=== PATIENT | male | born 1930 | race Asian ===

== ENCOUNTER 2021-05-20 16:20 | Inpatient (IN) | payer MEDICARE ==
[~2021-05-20] VITALS: Ht 162.6 cm; Wt 47.4 kg
[2021-05-20 17:22] LABS: HEMATOCRIT. 42.1 % (42.0-52.0); HEMOGLOBIN. 14.2 g/dL (14.0-18.0); MEAN CORPUSCULAR HEMOGLOBIN 31.1 pg (28.0-32.0); MEAN CORPUSCULAR VOLUME 92.5 fL (80.0-94.0); MEAN PLATELET VOLUME 7.1 fl (7.4-10.4); PLATELET 429 x1000/uL (130-400); RED BLOOD CELL COUNT 4.55 mill/uL (4.7-6.1); RED CELL DISTRIBUTION WIDTH 14.3 % (11.6-14.6)
[2021-05-20 17:26] LABS: CHLORIDE 108 mEq/L (98-107)
[2021-05-20 17:30] LABS: ETHANOL BLOOD < 10 mg/dL
[2021-05-20] MEDS ORDERED: DILTIAZEM HCL 5MG/ML 5ML VIAL IV ONE (17:30)
[2021-05-20] MEDS ORDERED: ASPIRIN 325MG EC TABLET PO ONE (17:30)
[2021-05-20 18:48] LABS: PLATELET ESTIMATE INCREASED
[2021-05-20] MEDS ORDERED: DILTIAZEM HCL 90MG TABLET PO ONE (19:00)
[2021-05-20] MEDS ORDERED: ENOXAPARIN 60MG/0.6ML SYR SUBCUT ONE (19:00)
[2021-05-21] VITALS (12 sets, daily range): BP systolic 105–136; BP diastolic 49–97
[2021-05-21] MEDS ORDERED: DIPHENHYDRAMINE 50MG/ML VIAL IV PRN (00:30)
[2021-05-21] MEDS ORDERED: GUAIFENESIN 200MG/10ML SUGAR FREE UDC PO PRN (00:30)
[2021-05-21] MEDS ORDERED: ACETAMINOPHEN 325MG TABLET PO PRN ×2 (00:30)
[2021-05-21] MEDS ORDERED: ZOLPIDEM TARTRATE 5MG TABLET PO PRN (00:30)
[2021-05-21] MEDS ORDERED: ONDANSETRON HCL 4MG/2ML INJ IV PRN (00:30)
[2021-05-21] MEDS ORDERED: MAGNESIUM/ALUMINUM HYDROXIDE/SIMETHICONE 30ML UDC PO PRN (00:30)
[2021-05-21 01:33] LABS: T4 FREE 1.38 ng/dL (0.76-1.46)
[2021-05-21] MEDS: OMEPRAZOLE 20MG CAPSULE EXTENDED RELEASE PO SCH ×2 (05:52→21:44)
[2021-05-21] MEDS: DILTIAZEM HCL 30MG TABLET PO SCH ×2 (05:52→11:27)
[2021-05-21] MEDS: SODIUM CHLORIDE 0.9% INJ 3ML FLUSH IVF SCH ×3 (05:52→21:45)
[2021-05-21] MEDS ORDERED: ENOXAPARIN 60MG/0.6ML SYR SUBCUT SCH (09:00)
[2021-05-21] MEDS ORDERED: ASPIRIN 81MG EC TABLET PO SCH (09:00)
[2021-05-21] MEDS: METOPROLOL TARTRATE 25MG TABLET PO SCH (21:45)
[2021-05-21] MEDS: ATORVASTATIN CALCIUM 20MG TABLET PO SCH (21:45)
[2021-05-22] VITALS (12 sets, daily range): BP systolic 108–152; BP diastolic 71–97
[2021-05-22] MEDS: OMEPRAZOLE 20MG CAPSULE EXTENDED RELEASE PO SCH (06:55)
[2021-05-22] MEDS: SODIUM CHLORIDE 0.9% INJ 3ML FLUSH IVF SCH ×3 (06:55→20:52)
[2021-05-22] MEDS: METOPROLOL TARTRATE 25MG TABLET PO SCH ×2 (08:37→20:50)
[2021-05-22] MEDS ORDERED: DIGOXIN 500MCG/2ML AMP IV NR (08:45)
[2021-05-22] MEDS ORDERED: ENOXAPARIN 60MG/0.6ML SYR SUBCUT SCH ×2 (09:00→21:00)
[2021-05-22 10:41] LABS: HEMATOCRIT. 38.7 % (42.0-52.0); MEAN CORPUSCULAR HEMOGLOBIN 31.1 pg (28.0-32.0); MEAN CORPUSCULAR VOLUME 92.8 fL (80.0-94.0); MEAN PLATELET VOLUME 7.1 fl (7.4-10.4); PLATELET 399 x1000/uL (130-400); RED BLOOD CELL COUNT 4.17 mill/uL (4.7-6.1)
[2021-05-22 10:48] LABS: CHLORIDE 103 mEq/L (98-107)
[2021-05-22] MEDS: DIGOXIN 500MCG/2ML AMP IV SCH ×2 (15:42→20:50)
[2021-05-22] MEDS: FAMOTIDINE 20MG TABLET PO SCH (20:50)
[2021-05-22] MEDS: ATORVASTATIN CALCIUM 20MG TABLET PO SCH (20:50)
[2021-05-22] MEDS: DILTIAZEM HCL 30MG TABLET PO SCH (22:33)
[2021-05-22 23:06] LABS: PLATELET ESTIMATE NORMAL
[2021-05-23] VITALS (12 sets, daily range): BP systolic 116–146; BP diastolic 57–99
[2021-05-23] MEDS: DIGOXIN 500MCG/2ML AMP IV SCH (03:20)
[2021-05-23] MEDS: SODIUM CHLORIDE 0.9% INJ 3ML FLUSH IVF SCH ×3 (06:02→20:33)
[2021-05-23] MEDS: FAMOTIDINE 20MG TABLET PO SCH (06:02)
[2021-05-23] MEDS: DILTIAZEM HCL 30MG TABLET PO SCH ×3 (06:02→22:05)
[2021-05-23] MEDS: METOPROLOL TARTRATE 25MG TABLET PO SCH ×2 (09:39→20:32)
[2021-05-23] MEDS: ENOXAPARIN 60MG/0.6ML SYR SUBCUT SCH ×2 (09:40→20:32)
[2021-05-23 18:30] LABS: BG BASE EXCESS -0.6 mmol/L (-2.0-2.0); BG CARBOXYHEMOGLOBIN 0.6 % (0.5-1.5); BG DEOXYHEMOGLOBIN 11.6 % (0.0-5.0); BG FRACTION INSPIRED OXYGEN 28; BG HCO3 ACT 22.6 mmol/L (22.0-26.0); BG METHEMOGLOBIN 0.1 % (0.0-1.5); BG OXYGEN SATURATION 88.3 % (92.0-98.5); BG OXYHEMOGLOBIN 87.7 % (94.0-97.0); BG PCO2 33.3 mmHg (35.0-45.0); BG PH 7.449 (7.350-7.450); BG PO2 52.8 mmHg (75.0-100.0); BG SAMPLE SITE RIGHT BRACHIAL; BG TOTAL HEMOGLOBIN 14.8 g/dL (12.0-18.0); BG VENT MODE NASAL CANNULA
[2021-05-23] MEDS: ATORVASTATIN CALCIUM 20MG TABLET PO SCH (20:32)
[2021-05-24] VITALS (12 sets, daily range): BP systolic 105–130; BP diastolic 48–88
[2021-05-24] MEDS: SODIUM CHLORIDE 0.9% INJ 3ML FLUSH IVF SCH ×3 (06:03→21:06)
[2021-05-24] MEDS: DILTIAZEM HCL 30MG TABLET PO SCH ×3 (06:03→21:05)
[2021-05-24] MEDS: ENOXAPARIN 60MG/0.6ML SYR SUBCUT SCH (09:20)
[2021-05-24] MEDS: FAMOTIDINE 20MG TABLET PO SCH (09:20)
[2021-05-24] MEDS ORDERED: BUDESONIDE 0.5MG/2ML NEB HHN SCH (10:00)
[2021-05-24] MEDS: DIGOXIN 250MCG TABLET PO SCH (17:57)
[2021-05-24] MEDS: APIXABAN 2.5 MG TABLET PO SCH (17:57)
[2021-05-24] MEDS: ATORVASTATIN CALCIUM 20MG TABLET PO SCH (21:05)
[2021-05-25] VITALS (11 sets, daily range): BP systolic 106–136; BP diastolic 50–81
[2021-05-25] MEDS: DILTIAZEM HCL 30MG TABLET PO SCH ×3 (05:15→21:17)
[2021-05-25] MEDS: SODIUM CHLORIDE 0.9% INJ 3ML FLUSH IVF SCH ×3 (05:15→21:17)
[2021-05-25] MEDS: FAMOTIDINE 20MG TABLET PO SCH (08:54)
[2021-05-25] MEDS: APIXABAN 2.5 MG TABLET PO SCH ×2 (08:54→17:49)
[2021-05-25] MEDS: DIGOXIN 250MCG TABLET PO SCH (17:49)
[2021-05-25] MEDS: ATORVASTATIN CALCIUM 20MG TABLET PO SCH (21:16)
[2021-05-26] VITALS (17 sets, daily range): BP systolic 119–149; BP diastolic 52–91
[2021-05-26] MEDS: SODIUM CHLORIDE 0.9% INJ 3ML FLUSH IVF SCH (05:48)
[2021-05-26] MEDS: DILTIAZEM HCL 30MG TABLET PO SCH ×2 (05:48→17:41)
[2021-05-26] MEDS: FAMOTIDINE 20MG TABLET PO SCH (08:14)
[2021-05-26] MEDS: APIXABAN 2.5 MG TABLET PO SCH ×2 (08:14→17:40)
[2021-05-26] MEDS ORDERED: ZINC SULFATE 220 MG ( 50 ) CAPSULE PO SCH (09:00)
[2021-05-26] MEDS ORDERED: ASCORBIC ACID 500 MG TABLET PO SCH (09:00)
[2021-05-26] MEDS: ATORVASTATIN CALCIUM 20MG TABLET PO SCH (20:16)
== END 2021-05-26 22:56 | DRG 308 ==
LOC: ER 16:20 → 3WST 20:14 → ENRESERV 21:07
PROVIDERS: ADMIT Internal Medicine; ATTEND Internal Medicine
DX: I48.91 Unspecified atrial fibrillation (principal); J96.01 Acute respiratory failure with hypoxia; Z20.822 Contact with and (suspected) exposure to COVID-19; C61 Malignant neoplasm of prostate; I51.7 Cardiomegaly; I45.9 Conduction disorder, unspecified; J44.9 Chronic obstructive pulmonary disease, unspecified; L89.150 Pressure ulcer of sacral region, unstageable; R41.89 Other symptoms and signs involving cognitive functions and awareness; Z85.46 Personal history of malignant neoplasm of prostate; Z86.73 Personal history of transient ischemic attack (TIA), and cerebral infarction without residual deficits
CPT/HCPCS: 36415; 36600; 71045; 80048; 80053; 80320; 82040; 82375; 82805; 83880; 84134; 84439; 84443; 84484; 85025; 87426; 93005; 93306; 93970; 94667; 97162; 97164; 97530; 99291; J1160; J1650; J3490; G0480

== ENCOUNTER 2021-07-01 16:08 | Emergency (ER) | payer MEDICARE ==
[~2021-07-01] VITALS: Ht 172.7 cm; Wt 55.0 kg
[2021-07-02 00:35] VITALS: BP 121/78
== END 2021-07-02 00:57 ==
LOC: ER 16:08
DX: M25.552 Pain in left hip (principal); J44.1 Chronic obstructive pulmonary disease with (acute) exacerbation; I48.91 Unspecified atrial fibrillation; Z98.890 Other specified postprocedural states; Z86.73 Personal history of transient ischemic attack (TIA), and cerebral infarction without residual deficits; W06.XXXA Fall from bed, initial encounter; Y93.89 Activity, other specified; Y92.89 Other specified places as the place of occurrence of the external cause; Y99.8 Other external cause status
CPT/HCPCS: 73502; 99285

== ENCOUNTER 2021-09-23 09:25 | Inpatient (IN) | payer MEDICARE ==
[~2021-09-23] VITALS: Ht 170.2 cm; Wt 41.5 kg
[2021-09-23 10:31] LABS: BASOPHILS % 0.1 % (0.0-2.0); EOSINOPHILS % 0.1 % (0.0-5.0); HEMATOCRIT. 36.8 % (42.0-52.0); HEMOGLOBIN. 12.2 g/dL (14.0-18.0); LYMPHOCYTES % 7.2 % (20.0-50.0); MEAN CORPUSCULAR HEMOGLOBIN 29.6 pg (28.0-32.0); MEAN CORPUSCULAR VOLUME 89.2 fL (80.0-94.0); MEAN PLATELET VOLUME 6.5 fl (7.4-10.4); MONOCYTES % 4.5 % (2.0-8.0); NEUTROPHILS % 88.1 % (40.0-76.0); PLATELET 336 x1000/uL (130-400); RED BLOOD CELL COUNT 4.13 mill/uL (4.7-6.1); RED CELL DISTRIBUTION WIDTH 16.1 % (11.6-14.6)
[2021-09-23 10:38] LABS: CHLORIDE 103 mEq/L (98-107)
[2021-09-23] MEDS ORDERED: PIPERACILLIN/TAZ 3.375G PREMIX 50 ML IV ONE (11:15)
[2021-09-23] MEDS ORDERED: VANCOMYCIN 1 G PREMIX 200 ML IV ONE (11:15)
[2021-09-23 11:51] LABS: BG BASE EXCESS 2.1 mmol/L (-2.0-2.0); BG CARBOXYHEMOGLOBIN 0.1 % (0.5-1.5); BG DEOXYHEMOGLOBIN 1.9 % (0.0-5.0); BG FRACTION INSPIRED OXYGEN 40; BG HCO3 ACT 25.6 mmol/L (22.0-26.0); BG METHEMOGLOBIN 0.2 % (0.0-1.5); BG OXYGEN SATURATION 98.1 % (92.0-98.5); BG OXYHEMOGLOBIN 97.8 % (94.0-97.0); BG PCO2 36.3 mmHg (35.0-45.0); BG PH 7.467 (7.350-7.450); BG PO2 110.1 mmHg (75.0-100.0); BG SAMPLE SITE RIGHT BRACHIAL; BG TOTAL HEMOGLOBIN 12.6 g/dL (12.0-18.0); BG VENT MODE NASAL CANNULA
[2021-09-23 12:49] LABS: CLARITY URINE CLOUDY (CLEAR); COLOR URINE YELLOW (YELLOW); KETONES URINE NEGATIVE (NEGATIVE); LEUKOCYTE ESTERASE URINE 1+ (NEGATIVE); NITRITE URINE POSITIVE (NEGATIVE); OCCULT BLOOD URINE TRACE (NEGATIVE); PROTEIN URINE 1+ (NEGATIVE)
[2021-09-23] MEDS ORDERED: ACETAMINOPHEN 325MG TABLET PO PRN (22:45)
[2021-09-23] MEDS ORDERED: ONDANSETRON HCL 4MG/2ML INJ IV PRN (22:45)
[2021-09-23 22:57] VITALS: BP 147/84
[2021-09-23] MEDS ORDERED: PIPERACILLIN/TAZ 3.375G PREMIX 50 ML IV SCH (23:00)
[2021-09-23] MEDS ORDERED: DOCU-150 PO (23:45)
[2021-09-23] MEDS ORDERED: [UNRECOGNIZED DRUG - CODE] PO (23:45)
[2021-09-23] MEDS ORDERED: DIGO125T80 PO (23:45)
[2021-09-23] MEDS ORDERED: MULT-622 PO (23:45)
[2021-09-23] MEDS ORDERED: ASCO-339 PO (23:45)
[2021-09-23] MEDS ORDERED: DILT60TA35 PO (23:45)
[2021-09-23] MEDS ORDERED: ATOR20TA65 PO (23:45)
[2021-09-23] MEDS ORDERED: FAMO20TA8 PO (23:45)
[2021-09-23 23:56] VITALS: BP 147/84
[2021-09-24] MEDS: DILTIAZEM HCL 30MG TABLET PO SCH ×4 (00:10→21:05)
[2021-09-24] MEDS: ENOXAPARIN 30MG/0.3ML SYR SUBCUT SCH ×2 (00:11→21:06)
[2021-09-24] MEDS: SODIUM CHLORIDE 0.9% 1,000 ML IV SCH ×3 (00:11→18:12)
[2021-09-24] MEDS: PIPERACILLIN/TAZOBACTAM 3.375G in DEXT 5% WATER 50ML IV SCH ×4 (00:52→21:06)
[2021-09-24 04:00] VITALS: BP 117/59
[2021-09-24 08:00] VITALS: BP 117/71
[2021-09-24] MEDS ORDERED: VANCOMYCIN 1 G PREMIX 200 ML IV SCH (11:00)
[2021-09-24 11:09] LABS: BASOPHILS % 0.2 % (0.0-2.0); EOSINOPHILS % 0.1 % (0.0-5.0); HEMATOCRIT. 39.5 % (42.0-52.0); HEMOGLOBIN. 12.8 g/dL (14.0-18.0); LYMPHOCYTES % 8.2 % (20.0-50.0); MEAN CORPUSCULAR VOLUME 89.7 fL (80.0-94.0); MEAN PLATELET VOLUME 6.9 fl (7.4-10.4); MONOCYTES % 4.3 % (2.0-8.0); NEUTROPHILS % 87.2 % (40.0-76.0); PLATELET 298 x1000/uL (130-400); RED BLOOD CELL COUNT 4.41 mill/uL (4.7-6.1)
[2021-09-24 11:16] LABS: CHLORIDE 107 mEq/L (98-107)
[2021-09-24 11:26] LABS: CREATINE KINASE 104 IU/L (39-308)
[2021-09-24 11:28] LABS: CREATINE KINASE MB FRACTION < 1.0 ng/mL (0.5-3.6)
[2021-09-24 12:00] VITALS: BP 130/73
[2021-09-24] MEDS: VANCOMYCIN 750 MG in DEXT 5% WATER 250 ML IV SCH (13:11)
[2021-09-24] MEDS: DIGOXIN 125MCG TABLET PO SCH (18:00)
[2021-09-24 20:00] VITALS: BP 116/76
[2021-09-24] MEDS: ATORVASTATIN CALCIUM 20MG TABLET PO SCH (21:01)
[2021-09-25] MEDS: SODIUM CHLORIDE 0.9% 1,000 ML IV SCH ×2 (04:45→14:45)
[2021-09-25] MEDS: DILTIAZEM HCL 30MG TABLET PO SCH ×3 (05:51→21:00)
[2021-09-25] MEDS: PIPERACILLIN/TAZOBACTAM 3.375G in DEXT 5% WATER 50ML IV SCH ×3 (05:52→20:59)
[2021-09-25 08:00] VITALS: BP 141/66
[2021-09-25] MEDS: VANCOMYCIN 750 MG in DEXT 5% WATER 250 ML IV SCH (10:01)
[2021-09-25 12:00] VITALS: BP 137/51
[2021-09-25] MEDS: DIGOXIN 125MCG TABLET PO SCH (18:00)
[2021-09-25 20:00] VITALS: BP 126/82
[2021-09-25] MEDS: ENOXAPARIN 30MG/0.3ML SYR SUBCUT SCH (20:59)
[2021-09-25] MEDS: ATORVASTATIN CALCIUM 20MG TABLET PO SCH (21:00)
[2021-09-26] MEDS: SODIUM CHLORIDE 0.9% 1,000 ML IV SCH ×3 (00:45→21:05)
[2021-09-26 04:00] VITALS: BP 115/70
[2021-09-26] MEDS: DILTIAZEM HCL 30MG TABLET PO SCH ×3 (05:24→21:05)
[2021-09-26] MEDS: PIPERACILLIN/TAZOBACTAM 3.375G in DEXT 5% WATER 50ML IV SCH ×3 (05:24→21:05)
[2021-09-26 08:00] VITALS: BP 147/78
[2021-09-26 12:00] VITALS: BP 142/55
[2021-09-26 16:00] VITALS: BP 158/80
[2021-09-26] MEDS: DIGOXIN 125MCG TABLET PO SCH (17:15)
[2021-09-26 20:00] VITALS: BP 115/59
[2021-09-26] MEDS: ATORVASTATIN CALCIUM 20MG TABLET PO SCH (21:05)
[2021-09-26] MEDS: ENOXAPARIN 30MG/0.3ML SYR SUBCUT SCH (21:05)
[2021-09-27 04:00] VITALS: BP 126/78
[2021-09-27] MEDS: SODIUM CHLORIDE 0.9% 1,000 ML IV SCH ×2 (06:07→17:14)
[2021-09-27] MEDS: DILTIAZEM HCL 30MG TABLET PO SCH ×3 (06:07→22:35)
[2021-09-27] MEDS: PIPERACILLIN/TAZOBACTAM 3.375G in DEXT 5% WATER 50ML IV SCH ×2 (06:07→14:32)
[2021-09-27 08:00] VITALS: BP 137/73
[2021-09-27 12:00] VITALS: BP 98/56
[2021-09-27 16:00] VITALS: BP 133/81
[2021-09-27] MEDS: DIGOXIN 125MCG TABLET PO SCH (17:13)
[2021-09-27 20:00] VITALS: BP 117/74
[2021-09-27] MEDS ORDERED: CEFTRIAXONE 1 G PREMIX 50 ML IV SCH (21:15)
[2021-09-27] MEDS: DEXAMETHASONE 10 MG/ML VIAL IV SCH (22:34)
[2021-09-27] MEDS: ENOXAPARIN 30MG/0.3ML SYR SUBCUT SCH (22:34)
[2021-09-27] MEDS: ATORVASTATIN CALCIUM 20MG TABLET PO SCH (22:35)
[2021-09-28] MEDS: SODIUM CHLORIDE 0.9% 1,000 ML IV SCH ×3 (01:08→22:02)
[2021-09-28] MEDS: CEFTRIAXONE 1,000 MG in DEXTROSE 5% WATER 50 ML IV SCH ×2 (01:08→22:02)
[2021-09-28 04:00] VITALS: BP 142/64
[2021-09-28] MEDS: DILTIAZEM HCL 30MG TABLET PO SCH ×3 (05:48→22:03)
[2021-09-28 08:00] VITALS: BP 135/57
[2021-09-28] MEDS: DEXAMETHASONE 10 MG/ML VIAL IV SCH (08:51)
[2021-09-28 12:00] VITALS: BP 141/67
[2021-09-28 16:00] VITALS: BP 152/89
[2021-09-28] MEDS: DIGOXIN 125MCG TABLET PO SCH (17:47)
[2021-09-28 20:00] VITALS: BP 166/83
[2021-09-28] MEDS: ENOXAPARIN 30MG/0.3ML SYR SUBCUT SCH (22:02)
[2021-09-28] MEDS: ATORVASTATIN CALCIUM 20MG TABLET PO SCH (22:03)
[2021-09-29 04:00] VITALS: BP 145/69
[2021-09-29] MEDS: DILTIAZEM HCL 30MG TABLET PO SCH (05:27)
[2021-09-29 08:00] VITALS: BP 151/76
[2021-09-29] MEDS: DEXAMETHASONE 10 MG/ML VIAL IV SCH (08:45)
[2021-09-29] MEDS: SODIUM CHLORIDE 0.9% 1,000 ML IV SCH ×2 (08:46→17:09)
[2021-09-29 12:00] VITALS: BP 137/86
[2021-09-29 16:00] VITALS: BP 150/82
[2021-09-29 17:14] LABS: BG BASE EXCESS -1.5 mmol/L (-2.0-2.0); BG CARBOXYHEMOGLOBIN 0.3 % (0.5-1.5); BG DEOXYHEMOGLOBIN 1.7 % (0.0-5.0); BG FRACTION INSPIRED OXYGEN 21; BG HCO3 ACT 20.2 mmol/L (22.0-26.0); BG OXYGEN SATURATION 98.3 % (92.0-98.5); BG PCO2 25.6 mmHg (35.0-45.0); BG PH 7.515 (7.350-7.450); BG PO2 128.4 mmHg (75.0-100.0); BG SAMPLE SITE RIGHT RADIAL; BG TOTAL HEMOGLOBIN 11.9 g/dL (12.0-18.0); BG VENT MODE ROOM AIR
[2021-09-29] MEDS: ATORVASTATIN CALCIUM 20MG TABLET PO SCH (20:47)
[2021-09-29] MEDS: ENOXAPARIN 30MG/0.3ML SYR SUBCUT SCH (20:47)
[2021-09-29] MEDS: CEFTRIAXONE 1,000 MG in DEXTROSE 5% WATER 50 ML IV SCH (22:07)
[2021-09-30] VITALS: BP 116/68
[2021-09-30 04:00] VITALS: BP 147/62
[2021-09-30] MEDS: SODIUM CHLORIDE 0.9% 1,000 ML IV SCH ×2 (04:45→17:16)
[2021-09-30 08:00] VITALS: BP 118/89
[2021-09-30] MEDS: DEXAMETHASONE 10 MG/ML VIAL IV SCH (09:21)
[2021-09-30 16:00] VITALS: BP 155/81
[2021-09-30 20:00] VITALS: BP 157/98
[2021-09-30] MEDS: ATORVASTATIN CALCIUM 20MG TABLET PO SCH (20:59)
[2021-09-30] MEDS: ENOXAPARIN 30MG/0.3ML SYR SUBCUT SCH (20:59)
[2021-09-30] MEDS: CEFTRIAXONE 1,000 MG in DEXTROSE 5% WATER 50 ML IV SCH (21:53)
[2021-10-01] VITALS: BP 156/81
[2021-10-01] MEDS: SODIUM CHLORIDE 0.9% 1,000 ML IV SCH ×3 (02:52→20:46)
[2021-10-01 04:00] VITALS: BP_SYST 175; BP_SYST 201; BP_DIAS 111; BP_DIAS 71
[2021-10-01 08:00] VITALS: BP_SYST 139; BP_SYST 175; BP_DIAS 71; BP_DIAS 79
[2021-10-01] MEDS: DEXAMETHASONE 10 MG/ML VIAL IV SCH (08:26)
[2021-10-01 08:33] LABS: BASOPHILS % 0.1 % (0.0-2.0); CHLORIDE 105 mEq/L (98-107); EOSINOPHILS % 0.1 % (0.0-5.0); HEMATOCRIT. 35.9 % (42.0-52.0); HEMOGLOBIN. 11.9 g/dL (14.0-18.0); LYMPHOCYTES % 7.9 % (20.0-50.0); MEAN CORPUSCULAR HEMOGLOBIN 28.6 pg (28.0-32.0); MEAN CORPUSCULAR VOLUME 85.8 fL (80.0-94.0); MEAN PLATELET VOLUME 7.2 fl (7.4-10.4); MONOCYTES % 6.9 % (2.0-8.0); PLATELET 362 x1000/uL (130-400); RED BLOOD CELL COUNT 4.18 mill/uL (4.7-6.1); RED CELL DISTRIBUTION WIDTH 15.5 % (11.6-14.6)
[2021-10-01 08:55] LABS: DIGOXIN 0.5 ng/mL (0.9-2.0)
[2021-10-01] MEDS: AMLODIPINE 10MG TABLET PO SCH (10:17)
[2021-10-01 12:00] VITALS: BP 120/74
[2021-10-01 16:00] VITALS: BP 116/62
[2021-10-01 20:00] VITALS: BP 122/62
[2021-10-01] MEDS: ENOXAPARIN 30MG/0.3ML SYR SUBCUT SCH (20:47)
[2021-10-01] MEDS: ATORVASTATIN CALCIUM 20MG TABLET PO SCH (20:47)
[2021-10-01] MEDS: CEFTRIAXONE 1,000 MG in DEXTROSE 5% WATER 50 ML IV SCH (20:47)
[2021-10-02] VITALS: BP 155/89
[2021-10-02 04:00] VITALS: BP 130/82
[2021-10-02] MEDS: SODIUM CHLORIDE 0.9% 1,000 ML IV SCH ×2 (05:41→20:16)
[2021-10-02 07:00] LABS: BASOPHILS % 0.1 % (0.0-2.0); EOSINOPHILS % 0.1 % (0.0-5.0); HEMATOCRIT. 36.3 % (42.0-52.0); HEMOGLOBIN. 11.8 g/dL (14.0-18.0); LYMPHOCYTES % 11.5 % (20.0-50.0); MEAN CORPUSCULAR HEMOGLOBIN 28.1 pg (28.0-32.0); MEAN CORPUSCULAR VOLUME 86.4 fL (80.0-94.0); MEAN PLATELET VOLUME 7.2 fl (7.4-10.4); MONOCYTES % 8.2 % (2.0-8.0); NEUTROPHILS % 80.1 % (40.0-76.0); PLATELET 392 x1000/uL (130-400); RED BLOOD CELL COUNT 4.21 mill/uL (4.7-6.1); RED CELL DISTRIBUTION WIDTH 15.9 % (11.6-14.6)
[2021-10-02 07:22] LABS: CHLORIDE 102 mEq/L (98-107)
[2021-10-02 08:00] VITALS: BP 109/82
[2021-10-02] MEDS: AMLODIPINE 10MG TABLET PO SCH (09:00)
[2021-10-02] MEDS: DEXAMETHASONE 10 MG/ML VIAL IV SCH (09:16)
[2021-10-02 12:00] VITALS: BP 121/70
[2021-10-02 16:00] VITALS: BP 125/76
[2021-10-02 20:00] VITALS: BP 117/75
[2021-10-02] MEDS: ENOXAPARIN 30MG/0.3ML SYR SUBCUT SCH (20:14)
[2021-10-02] MEDS: ATORVASTATIN CALCIUM 20MG TABLET PO SCH (20:14)
[2021-10-02] MEDS: CEFTRIAXONE 1,000 MG in DEXTROSE 5% WATER 50 ML IV SCH (21:36)
[2021-10-03] VITALS: BP 140/82
[2021-10-03] MEDS: SODIUM CHLORIDE 0.9% 1,000 ML IV SCH (02:01)
[2021-10-03 04:00] VITALS: BP 141/79
[2021-10-03 08:00] VITALS: BP 153/74
[2021-10-03] MEDS: AMLODIPINE 10MG TABLET PO SCH (10:13)
[2021-10-03 12:00] VITALS: BP 127/78
[2021-10-03 16:00] VITALS: BP 122/67
[2021-10-03 20:00] VITALS: BP 116/70
[2021-10-03] MEDS: ATORVASTATIN CALCIUM 20MG TABLET PO SCH (21:27)
[2021-10-03] MEDS: ENOXAPARIN 30MG/0.3ML SYR SUBCUT SCH (21:28)
[2021-10-04] VITALS: BP 100/60
[2021-10-04 04:00] VITALS: BP 103/62
[2021-10-04 08:00] VITALS: BP 123/73
[2021-10-04] MEDS: AMLODIPINE 10MG TABLET PO SCH (09:12)
[2021-10-04] MEDS ORDERED: AMLO10TA80 PO (11:05)
[2021-10-04 12:00] VITALS: BP 108/63
[2021-10-04 15:27] VITALS: BP 108/63
== END 2021-10-04 13:55 | DRG 871 ==
LOC: ER 09:25 → EDBEDREQ 10:48 → EDBEDREQTM 10:48 → EDBEDREQSVC 10:48 → 7EST 12:33 → EDBEDREQTM 12:49 → EDBEDREQ 12:49 → ENRESERV 21:26
PROVIDERS: ADMIT Internal Medicine; ATTEND Internal Medicine
DX: A41.9 Sepsis, unspecified organism (principal); G92.8 Other toxic encephalopathy; J96.01 Acute respiratory failure with hypoxia; U07.1 COVID-19; E43 Unspecified severe protein-calorie malnutrition; I48.20 Chronic atrial fibrillation, unspecified; N39.0 Urinary tract infection, site not specified; I42.0 Dilated cardiomyopathy; Z68.1 Body mass index [BMI] 19.9 or less, adult; E78.5 Hyperlipidemia, unspecified; F03.90 Unspecified dementia, unspecified severity, without behavioral disturbance, psychotic disturbance, mood disturbance, and anxiety; E78.00 Pure hypercholesterolemia, unspecified; J44.9 Chronic obstructive pulmonary disease, unspecified; R13.10 Dysphagia, unspecified; R00.1 Bradycardia, unspecified; R53.1 Weakness; I08.1 Rheumatic disorders of both mitral and tricuspid valves; R26.9 Unspecified abnormalities of gait and mobility; R53.81 Other malaise; B96.20 Unspecified Escherichia coli [E. coli] as the cause of diseases classified elsewhere; T50.995A Adverse effect of other drugs, medicaments and biological substances, initial encounter; Y92.238 Other place in hospital as the place of occurrence of the external cause; I10 Essential (primary) hypertension; Z86.73 Personal history of transient ischemic attack (TIA), and cerebral infarction without residual deficits; Z90.79 Acquired absence of other genital organ(s); Z85.46 Personal history of malignant neoplasm of prostate; Z82.49 Family history of ischemic heart disease and other diseases of the circulatory system
CPT/HCPCS: 36415; 36600; 71045; 80048; 80053; 80162; 81003; 82375; 82550; 82553; 82805; 83036; 83605; 83735; 84145; 84484; 85025; 86141; 87077; 87186; 87426; 93005; 97161; 97166; 97530; 97535; 99291; C1893; J0696; J1100; J1650; J2543; J3370; J7060